=== PATIENT | male | born 1965 | race Caucasian/White ===

== ENCOUNTER 2020-03-05 17:38 | Observation (INO) | payer BC ==
[2020-03-05] MEDS ORDERED: SODIUM CHLORIDE 0.9% 1,000 ML IV STA ×4 (18:07→19:15)
[2020-03-05] MEDS ORDERED: HYDROmorphone 1 MG/ML 1 ML SYRINGE IVP STA ×2 (18:07→20:17)
[2020-03-05] MEDS ORDERED: ONDANSETRON 4 MG/2 ML VIAL IVP STA (18:13)
[2020-03-05 18:35] LABS: Basophils % (A) 1 %; Eosinophils # (A) 0.1 k/uL (0-0.7); Eosinophils % (A) 1 %; HCT 48.7 % (39.0-53.0); HGB 16.2 gm/dL (13.0-17.5); Lymphocytes # (A) 1.5 k/uL (1.0-4.8); Lymphocytes % (A) 19 %; MCH 28.8 pg (25.0-35.0); MCHC 33.4 g/dL (31.0-37.0); MCV 86.3 fL (80.0-100.0); Mean Platelet Volume 8.5; Monocytes # (A) 0.5 k/uL (0-1.0); Monocytes % (A) 6 %; Neutrophils # (A) 5.7 k/uL (1.3-7.7); Neutrophils % (A) 72 %; Platelet Count 166 k/uL (150-450); RBC 5.64 m/uL (4.30-5.90); RDW 13.5 % (11.5-15.5); WBC 7.9 k/uL (3.8-10.6)
--- NOTE | 2020-03-05 18:37 | XR ---
EXAMINATION TYPE: XR KUB DATE OF EXAM: 03/05/2020 COMPARISON: NONE HISTORY: Abdominal pain TECHNIQUE: 2 views FINDINGS: 2 views upright were obtained and show no sign of intestinal obstruction or pneumoperitoneu m. Fecal pattern is normal. There is no sign of a mass. There is lumbar levoscoliosis. Lung bases are clear. There are no pathologic calcifications over the kidneys. IMPRESSION: Nonacute abdomen.
[2020-03-05 18:47] LABS: ALT 174 U/L (4-49); AST 117 U/L (17-59); African American GFR (CKD) 86 (>60 ml/min/1.73 sqM); Albumin 4.4 g/dL (3.5-5.0); Alcohol <10 mg/dL; Alkaline Phosphatase 96 U/L (38-126); Amylase 67 U/L (30-110); Anion Gap 12 mmol/L; Blood Urea Nitrogen 17 mg/dL (9-20); Calcium 9.4 mg/dL (8.4-10.2); Carbon Dioxide 21 mmol/L (22-30); Chloride 104 mmol/L (98-107); Creatine Kinase 223 U/L (55-170); Glucose 136 mg/dL (74-99); Lipase 197 U/L (23-300); Non-African American GFR(CKD) 74 (>60 ml/min/1.73 sqM); Potassium 4.1 mmol/L (3.5-5.1); Sodium 137 mmol/L (137-145); Total Bilirubin 0.8 mg/dL (0.2-1.3)
--- NOTE | 2020-03-05 18:53 | ED ---
Abdominal Pain HPI - General Chief Complaint: Abdominal Pain Stated Complaint: abdominal pain Time Seen by Provider: 03/05/20 18:07 Source: patient, family, RN notes reviewed Mode of arrival: ambulatory Limitations: no limitations - History of Present Illness Initial Comments: This is a 55-year-old male with a history of pancreatitis secondary to hyperl ipidemia and multiple surgeries done many years ago at [facility] who states she's had intermittent abdominal pain recently with past 3-4 days sharp in nature intermittent but now today he's had pain was 10/10 severity with nausea. Is now 7/10. Nonspecific no trouble with constipation diarrhea or dysuria. No overt fevers chills or sweats. He states it feels similar to his prior attacks of pancreatitis. He does not drink alcohol does not smoke cigarettes. No other change in his diet or medications. He states his triglycerides had been within reasonable limits recently. No other complaints or modifying factors. He was seen by his provider today and sent in for a CAT scan the abdomen but he started developing increased pain while preparing for the CAT scan. MD Complaint: abdominal pain - Related Data Home Medications Medication Instructions Recorded Confirmed Ascorbic Acid [Vitamin C] 1,000 mg PO DAILY 03/05/20 03/05/20 Atorvastatin Calcium [Lipitor] 40 mg PO HS 03/05/20 03/05/20 Cholecalciferol [Vitamin D3 (25 2,000 unit PO DAILY 03/05/20 03/05/20 Mcg = 1000 Iu)] Fenofibric Acid (Choline) 135 mg PO DAILY 03/05/20 03/05/20 [Fenofibric Acid] Ubidecarenone [Co Q-10] 100 mg PO DAILY 03/05/20 03/05/20 Allergies Allergy/AdvReac Type Severity Reaction Status Date / Time No Known Allergies Allergy Verified 03/05/20 19:49 Review of Systems ROS Statement: Those systems with pertinent positive or pertinent negative responses have been documented in the HPI. ROS Other: All systems not noted in ROS Statement are negative. Past Medical History Past Medical History: Hyperlipidemia History of Any Multi-Drug Resistant Organisms: None Reported Additional Past Surgical History / Comment(s): Pancreas Past Psychological History: No Psychological Hx Reported Smoking Status: Never smoker Past Alcohol Use History: None Reported Past Drug Use History: None Reported General Exam - General Exam Comments Initial Comments: This is a well-developed well-nourished awake alert oriented 3 male Limitations: no limitations General appearance: alert, anxious, in distress Head exam: Present: atraumatic, normocephalic, normal inspection Eye exam: Present: normal appearance, PERRL, EOMI. Absent: scleral icterus, conjunctival injection, periorbital swelling ENT exam: Present: normal exam, mucous membranes moist Neck exam: Present: normal inspection. Absent: tenderness, meningismus, lymphadenopathy Respiratory exam: Present: normal lung sounds bilaterally. Absent: respiratory distress, wheezes, rales, rhonchi, stridor Cardiovascular Exam: Present: regular rate, normal rhythm, normal heart sounds. Absent: systolic murmur, diastolic murmur, rubs, gallop, clicks GI/Abdominal exam: Present: soft, normal bowel sounds, other (Well-healed surgical scars midline as well as roof top. No overt guarding or rebound on examination.). Absent: distended, tenderness, guarding, rebound, rigid Extremities exam: Present: normal inspection, full ROM, normal capillary refill. Absent: tenderness, pedal edema, joint swelling, calf tenderness Back exam: Present: normal inspection Neurological exam: Present: alert, oriented X3, CN II-XII intact Psychiatric exam: Present: normal affect, normal mood Skin exam: Present: warm, dry, intact, normal color. Absent: rash Course Vital Signs 03/05/20 17:41 Temperature 98.2 F Pulse Rate 73 Respiratory 26 H Rate Blood Pressure 165/90 O2 Sat by Pulse 100 Oximetry Medical Decision Making - Medical Decision Making I did discuss findings with patient family is initially feeling better. He has increased abdominal pain. We a long discussion regarding the possible findings and diagnoses. Patient will be admitted Dr. Frausto. - Lab Data Result diagrams: 03/05/20 18:18 03/05/20 18:18 Lab Results 03/05/20 03/05/20 03/05/20 Range/Units 18:18 18:18 18:18 WBC 7.9 (3.8-10.6) k/uL RBC 5.64 (4.30-5.90) m/uL Hgb 16.2 (13.0-17.5) gm/dL Hct 48.7 (39.0-53.0) % MCV 86.3 (80.0-100.0) fL MCH 28.8 (25.0-35.0) pg MCHC 33.4 (31.0-37.0) g/dL RDW 13.5 (11.5-15.5) % Plt Count 166 (150-450) k/uL Neutrophils % 72 % Lymphocytes % 19 % Monocytes % 6 % Eosinophils % 1 % Basophils % 1 % Neutrophils # 5.7 (1.3-7.7) k/uL Lymphocytes # 1.5 (1.0-4.8) k/uL Monocytes # 0.5 (0-1.0) k/uL Eosinophils # 0.1 (0-0.7) k/uL Basophils # 0.0 (0-0.2) k/uL Sodium 137 (137-145) mmol/L Potassium 4.1 (3.5-5.1) mmol/L Chloride 104 (98-107) mmol/L Carbon Dioxide 21 L (22-30) mmol/L Anion Gap 12 mmol/L BUN 17 (9-20) mg/dL Creatinine 1.11 (0.66-1.25) mg/dL Est GFR (CKD-EPI)AfAm 86 (>60 ml/min/1.73 sqM) Est GFR (CKD-EPI)NonAf 74 (>60 ml/min/1.73 sqM) Glucose 136 H (74-99) mg/dL Plasma Lactic Acid Catracho (0.7-2.0) mmol/L Calcium 9.4 (8.4-10.2) mg/dL Total Bilirubin 0.8 (0.2-1.3) mg/dL AST 117 H (17-59) U/L ALT 174 H (4-49) U/L Alkaline Phosphatase 96 (38-126) U/L Creatine Kinase 223 H (55-170) U/L Troponin I (0.000-0.034) ng/mL Total Protein 7.0 (6.3-8.2) g/dL Albumin 4.4 (3.5-5.0) g/dL Amylase 67 (30-110) U/L Lipase 197 (23-300) U/L Urine Color Light Yellow Urine Appearance Clear (Clear) Urine pH 7.0 (5.0-8.0) Ur Specific Lynn 1.027 (1.001-1.035) Urine Protein 1+ H (Negative) Urine Glucose (UA) Negative (Negative) Urine Ketones Negative (Negative) Urine Blood Negative (Negative) Urine Nitrite Negative (Negative) Urine Bilirubin Negative (Negative) Urine Urobilinogen <2.0 (<2.0) mg/dL Ur Leukocyte Esterase Negative (Negative) Urine RBC <1 (0-5) /hpf Urine WBC 1 (0-5) /hpf Serum Alcohol <10 mg/dL 03/05/20 03/05/20 Range/Units 18:18 18:18 WBC (3.8-10.6) k/uL RBC (4.30-5.90) m/uL Hgb (13.0-17.5) gm/dL Hct (39.0-53.0) % MCV (80.0-100.0) fL MCH (25.0-35.0) pg MCHC (31.0-37.0) g/dL RDW (11.5-15.5) % Plt Count (150-450) k/uL Neutrophils % % Lymphocytes % % Monocytes % % Eosinophils % % Basophils % % Neutrophils # (1.3-7.7) k/uL Lymphocytes # (1.0-4.8) k/uL Monocytes # (0-1.0) k/uL Eosinophils # (0-0.7) k/uL Basophils # (0-0.2) k/uL Sodium (137-145) mmol/L Potassium (3.5-5.1) mmol/L Chloride (98-107) mmol/L Carbon Dioxide (22-30) mmol/L Anion Gap mmol/L BUN (9-20) mg/dL Creatinine (0.66-1.25) mg/dL Est GFR (CKD-EPI)AfAm (>60 ml/min/1.73 sqM) Est GFR (CKD-EPI)NonAf (>60 ml/min/1.73 sqM) Glucose (74-99) mg/dL Plasma Lactic Acid Catracho 3.0 H* (0.7-2.0) mmol/L Calcium (8.4-10.2) mg/dL Total Bilirubin (0.2-1.3) mg/dL AST (17-59) U/L ALT (4-49) U/L Alkaline Phosphatase (38-126) U/L Creatine Kinase (55-170) U/L Troponin I <0.012 (0.000-0.034) ng/mL Total Protein (6.3-8.2) g/dL Albumin (3.5-5.0) g/dL Amylase (30-110) U/L Lipase (23-300) U/L Urine Color Urine Appearance (Clear) Urine pH (5.0-8.0) Ur Specific Lynn (1.001-1.035) Urine Protein (Negative) Urine Glucose (UA) (Negative) Urine Ketones (Negative) Urine Blood (Negative) Urine Nitrite (Negative) Urine Bilirubin (Negative) Urine Urobilinogen (<2.0) mg/dL Ur Leukocyte Esterase (Negative) Urine RBC (0-5) /hpf Urine WBC (0-5) /hpf Serum Alcohol mg/dL - Radiology Data Radiology results: report reviewed (I did review the imaging and report is evidence of a possible ileus with a single loop of small bowel.), image reviewed Disposition Clinical Impression: Abdominal pain, Ileus Disposition: ADMITTED IP TO THIS [facility] Condition: Fair Referrals: Robin Hoff MD [Primary Care Provider] - 1-2 days
--- NOTE | 2020-03-05 19:21 | CT ---
EXAMINATION TYPE: CT abdomen pelvis w con DATE OF EXAM: 03/05/2020 COMPARISON: HISTORY: Abdominal pain CT DLP: 846.5 mGycm Automated exposure control for dose reduction was used. CONTRAST: Performed with IV Contrast, patient injected with 100 mL of Isovue 300. Lung bases are clear. There is no pleural effusion. There is 1.7 cm cyst in the left lobe of the live r. Heart size is normal. There is no pericardial effusion. Gallbladder is intact. The bile ducts are not dilated. Spleen is intact. There is no evidence of panc reatic mass. Stomach has normal size. There is no adrenal mass. Kidneys show satisfactory contrast opacification. There is no hydronephrosi s. There is 2 cm cortical cyst upper pole right kidney. There is no retroperitoneal adenopathy. Bladd er distends smoothly. There is no inguinal hernia. Prostate measures 5.3 cm. There is no free fluid i n the pelvis. There is a first-degree L5-S1 spondylolisthesis. There is no lumbar compression fracture. There is mi ld lumbar levoscoliosis. There is L5 spondylolysis. The hip joints are intact. Bony pelvis is intact. There is no mesenteric edema. There is no ascites or free air. There is mildly enlarged loop of small bowel in the right abdomen that measures up to 3 cm. Appendix is not seen. There is no sign of thick ened appendix. IMPRESSION: Distended loop of distal small bowel could relate to localized ileus. Appendix not seen. No sign of t hickened appendix. The large bowel appears to be entirely on the middle and right side of the abdomen . This could relate to some degree of nonrotation of the gut.
[2020-03-05 19:34] LABS: Appearance,Urine Clear (Clear); Bilirubin,Urine Negative (Negative); Blood,Urine Negative (Negative); Color,Urine Light Yellow; Glucose,Urine (UA) Negative (Negative); Ketones,Urine Negative (Negative); Leukocyte Esterase,Urine Negative (Negative); Nitrite,Urine Negative (Negative); Protein,Urine 1+ (Negative); RBC,Urine <1 /hpf (0-5); Specific Gravity,Urine 1.027 (1.001-1.035); Urobilinogen,Urine <2.0 mg/dL (<2.0); WBC,Urine 1 /hpf (0-5)
[2020-03-05] MEDS ORDERED: HYDROmorphone 1 MG/ML 1 ML SYRINGE IVP PRN (20:38)
[2020-03-05] MEDS ORDERED: NALOXONE 0.4 MG/ML 1 ML VIAL IV PRN (20:38)
[2020-03-05] MEDS ORDERED: ONDANSETRON 4 MG/2 ML VIAL IVP PRN (20:38)
[2020-03-05] MEDS ORDERED: MELATONIN 5 MG TABLET PO PRN (22:14)
[2020-03-05] MEDS: PANTOPRAZOLE 40 MG/10 ML VIAL IV SCH (22:51)
[2020-03-06] MEDS: CHOLECALCIFEROL 1,000 UNIT TAB PO SCH (08:48)
[2020-03-06] MEDS: PANTOPRAZOLE 40 MG/10 ML VIAL IV SCH (08:49)
[2020-03-06] MEDS: ASCORBIC ACID 500 MG TAB PO SCH (08:49)
[2020-03-06] MEDS: FENOFIBRATE 160 MG TAB PO SCH (08:49)
[2020-03-06 09:07] LABS: Basophils % (A) 0 %; Eosinophils # (A) 0.1 k/uL (0-0.7); Eosinophils % (A) 1 %; HCT 41.7 % (39.0-53.0); HGB 13.4 gm/dL (13.0-17.5); Lymphocytes # (A) 1.1 k/uL (1.0-4.8); Lymphocytes % (A) 17 %; MCH 28.2 pg (25.0-35.0); MCHC 32.2 g/dL (31.0-37.0); MCV 87.8 fL (80.0-100.0); Mean Platelet Volume 8.7; Monocytes # (A) 0.6 k/uL (0-1.0); Monocytes % (A) 9 %; Neutrophils # (A) 4.7 k/uL (1.3-7.7); Neutrophils % (A) 71 %; Platelet Count 119 k/uL (150-450); RBC 4.75 m/uL (4.30-5.90); RDW 13.8 % (11.5-15.5); WBC 6.6 k/uL (3.8-10.6)
[2020-03-06 09:10] LABS: Cholesterol 113 mg/dL (<200); HDL Cholesterol 35 mg/dL (40-60); LDL Cholesterol,Calculated 56 mg/dL (0-99); Triglycerides 112 mg/dL (<150)
[2020-03-06 12:16] LABS: ALT 120 U/L (4-49); AST 53 U/L (17-59); African American GFR (CKD) >90 (>60 ml/min/1.73 sqM); Albumin 3.1 g/dL (3.5-5.0); Alkaline Phosphatase 63 U/L (38-126); Anion Gap 4 mmol/L; Blood Urea Nitrogen 13 mg/dL (9-20); Calcium 8.3 mg/dL (8.4-10.2); Carbon Dioxide 26 mmol/L (22-30); Chloride 108 mmol/L (98-107); Glucose 100 mg/dL (74-99); Lipase 175 U/L (23-300); Non-African American GFR(CKD) 80 (>60 ml/min/1.73 sqM); Potassium 3.7 mmol/L (3.5-5.1); Sodium 138 mmol/L (137-145); Total Bilirubin 0.9 mg/dL (0.2-1.3); Total Protein 5.5 g/dL (6.3-8.2)
[2020-03-06] MEDS ORDERED: ACETAMINOPHEN TAB 325 MG TAB PO PRN (12:17)
[2020-03-06] MEDS: ENOXAPARIN 40 MG/0.4 ML SYRINGE SQ SCH (12:26)
--- NOTE | 2020-03-06 16:14 | P.GSCN ---
History of Present Illness Consult date: 03/06/20 History of present illness: CHIEF COMPLAINT: Abdominal pain HISTORY OF PRESENT ILLNESS: The patient is a 55-year-old man admitted yesterday from the emergency room secondary to abdominal pain. He reports his pain started Sunday, now 5 days ago that started at the right upper quadrant with radiation to his right upper back and side. He his pain had slowly improved over 4 days and was able to tolerate apple and oatmeal for breakfast yesterday. He had lunch at a local restaurant chicken salad with argentine dressing and had recurrent right upper quadrant pain. He has intolerance to creamy foods. He reports generally eating healthy. His family at bedside reports he like pizza. He went to his PCP yesterday for requested CT of the abdomen and pelvis hence his presentation today. He reports 29 years ago having multiple abdominal surgeries and was hospitalized for 13 weeks for severe pancreatitis. 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 He is concerned about his digestion. He is tolerating clear liquid diet. PAST MEDICAL HISTORY: See list and reviewed PAST SURGICAL HISTORY: See list and reviewed MEDICATIONS: See list and reviewed ALLERGIES: See list and reviewed SOCIAL HISTORY: See list and reviewed FAMILY HISTORY: See list and reviewed REVIEW OF ORGAN SYSTEMS: CONSTITUTIONAL: No fevers or chills. . EYES: Denies any trouble with vision. Wears glasses. HEENT: No difficulties with hearing. No nosebleeds. No difficulty swallowing. RESPIRATORY: Denies pneumonia. Denies any troubles with breathing or dyspnea on exertion. CARDIOVASCULAR: Denies any chest pain, palpitations, or recent heart attacks. Has hyperlipidemia. GASTROINTESTINAL: History of pancreatitis over 29 years ago with multiple abdominal surgeries. GENITOURINARY: Denies any blood in urine or increased urinary frequency. NEUROLOGICAL: Denies any numbness or tingling along the distal extremities. No seizure disorders or headaches. MUSCULOSKELETAL: Denies any back pain, stiffness or joint arthritis. SKIN: No current skin cancer. No rash. PSYCHIATRIC: Denies current depression or suicidal thoughts. ENDOCRINE: Denies current thyroid disorders. Denies any blood sugar glucose intolerance. HEME/LYMPHATIC: Denies any lumps and bumps around the neck. No recent deep venous thrombosis. ALLERGY/IMMUNOLOGY: No immunoglobulin therapy. No immune deficiencies. BREAST: Denies current breast lumps, pain or nipple discharge. PHYSICAL EXAM: VITALS: Reviewed CONSTITUTIONAL: Well developed and in no acute distress. EYES: Conjuctivae without sclera icterus. Pupils are equally round and reactive to light. Extraocular movements grossly intact. HEAD, EARS, NOSE, THROAT: Moist buccal mucosa. Head is atraumatic, normocephalic. Hears conversational speech. No nasal drainage. NECK: Supple. No JV distention. No thyroidomegaly. RESPIRATORY: Non-labored respirations and equal bilateral excursions. No gross wheezes. CARDIOVASCULAR: Regular rate and rhythm. Extremities without moderate edema. Palpable 2+ radial pulses. ABDOMEN: Multiple abdominal incisions including Chevron, upper midline, right lateral abdominal wall feeding tube/drain site healed. MUSCULOSKELETAL: No clubbing cyanosis SKIN: Warm and well perfused with good skin turgor. NEUROLOGIC: Cranial nerves II through XII grossly intact. Sensation upper and extremities intact. No focal or lateralizing signs. PSYCH: Appropriate affect. Alert and oriented to person, place and time. Disp lays appropriate insight. CLINCAL LABS: Reviewed. WBC normal 7.9 on admission. Lactate was elevated 3.0. Repeat WBC 6.6. Hemoglobin 13.4. IMAGING: Independently reviewed CT of the abdomen pelvis where gallbladder is present. No focal colitis free air or bowel obstruction identified. This is my independent interpretation. RADIOLOGY: Report reviewed a CT of the abdomen and pelvis with findings of ileus. ASSESSMENT: 1. Ileus 2. Abdominal pain 3. Clinical cholecystitis 4. Catastrophic abdomen for necrotizing pancreatitis 5. Multiple abdominal surgeries for hostile abdomen PLAN: 1. Recommend US gallbladder for gallstones. 2. Agree with GI consultation for history of necrotizing pancreatitis in the past. Patient family requesting upper GI scope 3. Dietitian for low fat diet. 4. No surgical intervention for pre-existing history of hostile abdomen. Thank you for this kind consultation. Past Medical History Past Medical History: Hyperlipidemia Additional Past Medical History / Comment(s): Hx of pancreatitis. Prolonged hosptilization 29 years ago, 1990 over 13 weeks for necrotizing pancreatitis. Had feeding tube, open abdomen. History of Any Multi-Drug Resistant Organisms: None Reported Additional Past Surgical History / Comment(s): Chevron incision, upper abdominal incision, feeding/drainage tubes. Multiple laparotomies for necrotizing pancreatitis, hostile abdomen. Past Anesthesia/Blood Transfusion Reactions: No Reported Reaction Past Psychological History: No Psychological Hx Reported Smoking Status: Never smoker Past Alcohol Use History: None Reported Past Drug Use History: None Reported Medications and Allergies Home Medications Medication Instructions Recorded Confirmed Type Ascorbic Acid [Vitamin C] 1,000 mg PO DAILY 03/05/20 03/05/20 History Atorvastatin Calcium [Lipitor] 40 mg PO HS 03/05/20 03/05/20 History Cholecalciferol [Vitamin D3 (25 2,000 unit PO DAILY 03/05/20 03/05/20 History Mcg = 1000 Iu)] Fenofibric Acid (Choline) 135 mg PO DAILY 03/05/20 03/05/20 History [Fenofibric Acid] Ubidecarenone [Co Q-10] 100 mg PO DAILY 03/05/20 03/05/20 History Allergies Allergy/AdvReac Type Severity Reaction Status Date / Time No Known Allergies Allergy Verified 03/05/20 19:49 Surgical - Exam Vital Signs Temp Pulse Resp BP Pulse Ox 98.2 F 73 26 H 165/90 100 03/05/20 17:41 03/05/20 17:41 03/05/20 17:41 03/05/20 17:41 03/05/20 17:41 Results - Labs 03/06/20 08:48 03/06/20 08:48 Abnormal Lab Results - Last 24 Hours (Table) 03/05/20 03/05/20 03/05/20 Range/Units 18:18 18:18 18:18 Plt Count (150-450) k/uL Carbon Dioxide 21 L (22-30) mmol/L Glucose 136 H (74-99) mg/dL Plasma Lactic Acid Catracho 3.0 H* (0.7-2.0) mmol/L AST 117 H (17-59) U/L ALT 174 H (4-49) U/L Creatine Kinase 223 H (55-170) U/L HDL Cholesterol (40-60) mg/dL Urine Protein 1+ H (Negative) 03/06/20 03/06/20 Range/Units 08:48 08:48 Plt Count 119 L (150-450) k/uL Carbon Dioxide (22-30) mmol/L Glucose (74-99) mg/dL Plasma Lactic Acid Catracho (0.7-2.0) mmol/L AST (17-59) U/L ALT (4-49) U/L Creatine Kinase (55-170) U/L HDL Cholesterol 35 L (40-60) mg/dL Urine Protein (Negative) Diabetes panel 03/05/20 03/06/20 Range/Units 18:18 08:48 Sodium 137 (137-145) mmol/L Potassium 4.1 (3.5-5.1) mmol/L Chloride 104 (98-107) mmol/L Carbon Dioxide 21 L (22-30) mmol/L BUN 17 (9-20) mg/dL Creatinine 1.11 (0.66-1.25) mg/dL Glucose 136 H (74-99) mg/dL Calcium 9.4 (8.4-10.2) mg/dL AST 117 H (17-59) U/L ALT 174 H (4-49) U/L Alkaline Phosphatase 96 (38-126) U/L Total Protein 7.0 (6.3-8.2) g/dL Albumin 4.4 (3.5-5.0) g/dL Triglycerides 112 (<150) mg/dL HDL Cholesterol 35 L (40-60) mg/dL Calcium panel 03/05/20 Range/Units 18:18 Calcium 9.4 (8.4-10.2) mg/dL Albumin 4.4 (3.5-5.0) g/dL Pituitary panel 03/05/20 Range/Units 18:18 Sodium 137 (137-145) mmol/L Potassium 4.1 (3.5-5.1) mmol/L Chloride 104 (98-107) mmol/L Carbon Dioxide 21 L (22-30) mmol/L BUN 17 (9-20) mg/dL Creatinine 1.11 (0.66-1.25) mg/dL Glucose 136 H (74-99) mg/dL Calcium 9.4 (8.4-10.2) mg/dL Adrenal panel 03/05/20 Range/Units 18:18 Sodium 137 (137-145) mmol/L Potassium 4.1 (3.5-5.1) mmol/L Chloride 104 (98-107) mmol/L Carbon Dioxide 21 L (22-30) mmol/L BUN 17 (9-20) mg/dL Creatinine 1.11 (0.66-1.25) mg/dL Glucose 136 H (74-99) mg/dL Calcium 9.4 (8.4-10.2) mg/dL Total Bilirubin 0.8 (0.2-1.3) mg/dL AST 117 H (17-59) U/L ALT 174 H (4-49) U/L Alkaline Phosphatase 96 (38-126) U/L Total Protein 7.0 (6.3-8.2) g/dL Albumin 4.4 (3.5-5.0) g/dL Assessment and Plan (1) History of pancreatitis Current Visit: Yes Status: Acute Code(s): Z87.19 - PERSONAL HISTORY OF OTHER DISEASES OF THE DIGESTIVE SYSTEM SNOMED Code(s): 83496747931747 (2) S/P multiple system trauma surgery Current Visit: Yes Status: Acute Code(s): Z98.890 - OTHER SPECIFIED POSTPROCEDURAL STATES SNOMED Code(s): 495246156 (3) Cholecystitis Current Visit: Yes Status: Acute Code(s): K81.9 - CHOLECYSTITIS, UNSPECIFIED SNOMED Code(s): 57750344 (4) Hyperlipidemia Current Visit: Yes Status: Acute Code(s): E78.5 - HYPERLIPIDEMIA, UNSPECIFIED SNOMED Code(s): 21554427
--- NOTE | 2020-03-06 17:14 | US ---
EXAMINATION TYPE: US gallbladder DATE OF EXAM: 03/06/2020 COMPARISON: NONE CLINICAL HISTORY: Right upper quadrant pain. RUQ pain exam limitations due to large scar across abdom en. EXAM MEASUREMENTS: Liver Length: 16.4 cm Gallbladder Wall: .4 cm CBD: .8 cm Right Kidney: 10.5 x 5.6 x 5.1 cm Pancreas: Obscured by bowel gas Liver: wnl Gallbladder: Multiple gallstones seen thickened wall. Evidence for sonographic Lindquist's sign: No CBD: Dilated. Right Kidney: Anechoic are upper pole 1.7 x 1.3 x 1.8 cm. IMPRESSION: 1. Clinical correlation recommended for acute cholecystitis.
[2020-03-06] MEDS: PANTOPRAZOLE 40 MG TABLET PO SCH (17:19)
--- NOTE | 2020-03-06 20:08 | P.HPIM ---
History of Present Illness H&P Date: 03/06/20 Chief Complaint: Abdominal pain History of presenting complaint: This is a pleasant 55-year-old patient of Dr. meier from [place]. He should about 29 years ago at an attack of pancreatitis back in February 1991. Had a second attack of the same in June 1991. Patient states she was diagnosed with necrotizing pancreatitis. He underwent multiple surgeries by the surgeons out of [place] Dr. Garrett and Dr. Zelaya. Subsequently over the years patient has done well. With no further complications. Has not unremarkable history. 4 days ago patient started having abdominal pain. Apically for about an hour after eating food and it lasted for about an hour. Yesterday it got out to eat with his and after eating chicken salad he again doesn't know severe pain. Pain is localized to the upper abdomen area. Denied nausea vomiting. No fever no chills. No change in bowel pattern. Admitted for the same. Pancreatic enzymes are normal in the ER. I saw the patient this morning patient's pain is completely relieved. Patient is hungry. Getting IV fluids. Had been nothing by mouth. Review of systems: GEN.: Tired EYES: None HEENT: None NECK: None RESPIRATORY: None CARDIOVASCULAR: None GASTROINTESTINAL: As above GENITOURINARY: None MUSCULOSKELETAL: None LYMPHATICS: None HEMATOLOGICAL: None PSYCHIATRY: None NEUROLOGICAL: None Past medical history to include: Necrotizing pancreatitis with multiple surgeries back in 1991.-He was about 13 weeks in the hospital with a feeding tube. Open abdomen. Social history: Lives with his . Works at [employer]. No smoking or alcohol. Family history: Reviewed, noncontributory to presentation Physical examination: VITAL SIGNS: 98.2, 73, 18, 1 58 x 68, 100% on room air GENERAL: BMI 24.4, sitting up, comfortable. EYES: Pupils equal. Conjunctiva normal. HEENT: External appearance of nose and ears normal, oral cavity grossly normal. NECK: JVD not raised; masses not palpable. HEART: First and second heart sounds are normal; no edema. LUNGS: Respiratory rate normal; clear to auscultation. ABDOMEN: Soft, nontender, liver spleen not palpable, no masses palpable. PSYCH: Alert and oriented x3; mood and affect normal. NEUROLOGICAL: Cranial nerves grossly intact; no facial asymmetry, power and sensation grossly intact. LYMPHATICS: No lymph nodes palpable in the axilla and neck INVESTIGATIONS, reviewed in the clinical context: White count 7.9 hemoglobin 16.2 platelets 166 potassium 4.1 creatinine 1.11 Lactic acid 3.0 AST 117 ALT 174 Troponin I less than 0.012 LDL 56 amylase 67 lipase 197 UA positive for protein 1+ Computed tomography scan of the abdomen pelvis-distended loop of distal small bowel. Question about nonrotation of the gut Assessment: -This is a patient with severe necrotizing pancreatitis several years ago with multiple surgeries. Patient now presents with abdominal pain 1 hour after of eating lasting for about an hour. Going on for about 3-4 days. Note patient's bank getting enzymes normal. Patient neither radiologically has any evidence of chronic pancreatitis no prior history. Denies any chronic diarrhea. Has no diabetes. Making chronic peritonitis less likely. Would've expected it to some lies and pancreatic enzymes with this acute presentation. Possibility of gallstones noted given at elevation in slight LFTs. Bowel ischemia in the diff erential. No nothing on the computed tomography scan with IV contrast. -Lactic acidosis -Incidental proteinuria. Plan: Had a very lengthy talk with the patient. We'll try the patient on clear liqui ds and advanced to full liquids see how he does for the same. Consultation made to general surgery and also consult GI. IV fluids. DVT prophylaxis. Repeat labs in the morning. Repeat LFTs in the evening. We will make the patient nothing by mouth after midnight till further evaluated. Abdominal ultrasound ordered Past Medical History Past Medical History: Hyperlipidemia Additional Past Medical History / Comment(s): Hx of pancreatitis History of Any Multi-Drug Resistant Organisms: None Reported Additional Past Surgical History / Comment(s): Pancreas Past Anesthesia/Blood Transfusion Reactions: No Reported Reaction Past Psychological History: No Psychological Hx Reported Smoking Status: Never smoker Past Alcohol Use History: None Reported Past Drug Use History: None Reported Medications and Allergies Home Medications Medication Instructions Recorded Confirmed Type Ascorbic Acid [Vitamin C] 1,000 mg PO DAILY 03/05/20 03/05/20 History Atorvastatin Calcium [Lipitor] 40 mg PO HS 03/05/20 03/05/20 History Cholecalciferol [Vitamin D3 (25 2,000 unit PO DAILY 03/05/20 03/05/20 History Mcg = 1000 Iu)] Fenofibric Acid (Choline) 135 mg PO DAILY 10/30/20 10/30/20 History [Fenofibric Acid] Ubidecarenone [Co Q-10] 100 mg PO DAILY 03/05/20 03/05/20 History Allergies Allergy/AdvReac Type Severity Reaction Status Date / Time No Known Allergies Allergy Verified 03/05/20 19:49 Physical Exam Vitals: Vital Signs Temp Pulse Pulse Resp BP BP Pulse Ox 03/06/20 09:00 98.3 F 62 17 142/85 98 03/06/20 02:33 98.1 F 70 16 116/70 99 03/06/20 02:22 66 16 03/05/20 23:00 66 16 161/99 97 03/05/20 22:10 66 16 03/05/20 22:00 98.0 F 72 15 185/105 97 03/05/20 21:49 98.6 F 78 18 158/68 98 03/05/20 17:41 98.2 F 73 26 H 165/90 100 Intake and Output 03/05/20 03/06/20 03/06/20 22:59 06:59 14:59 Other: # Voids 2 1 Weight 77.111 kg Results CBC & Chem 7: 03/06/20 08:48 03/06/20 08:48 Labs: Abnormal Lab Results - Last 24 Hours (Table) 03/05/20 03/05/20 03/05/20 Range/Units 18:18 18:18 18:18 Plt Count (150-450) k/uL Carbon Dioxide 21 L (22-30) mmol/L Glucose 136 H (74-99) mg/dL Plasma Lactic Acid Catracho 3.0 H* (0.7-2.0) mmol/L AST 117 H (17-59) U/L ALT 174 H (4-49) U/L Creatine Kinase 223 H (55-170) U/L HDL Cholesterol (40-60) mg/dL Urine Protein 1+ H (Negative) 03/06/20 03/06/20 Range/Units 08:48 08:48 Plt Count 119 L (150-450) k/uL Carbon Dioxide (22-30) mmol/L Glucose (74-99) mg/dL Plasma Lactic Acid Catr[place] (0.7-2.0) mmol/L AST (17-59) U/L ALT (4-49) U/L Creatine Kinase (55-170) U/L HDL Cholesterol 35 L (40-60) mg/dL Urine Protein (Negative) Thrombosis Risk Factor Assmnt - Choose All That Apply Any of the Below Risk Factors Present?: Yes Each Factor Represents 1 point: Age 41-60 years Other Risk Factors: No Thrombosis Risk Factor Assessment Total Risk Factor Score: 1 Thrombosis Risk Factor Assessment Level: Low Risk
[2020-03-06] MEDS ORDERED: ATORVASTATIN 40 MG TAB PO SCH (21:00)
--- NOTE | 2020-03-06 21:22 | NM ---
EXAMINATION TYPE: NM hepatobiliary wo EF DATE OF EXAM: 03/06/2020 COMPARISON: NONE INDICATION: Biliary dyskinesia TECHNIQUE: After the intravenous administration of 4.6 mCi Tc 99m Mebrofenin hepatobiliary scintigrap hy is performed. Images were obtained immediately post injection. FINDINGS: There is prompt uptake and excretion of radiotracer by the liver. Extrahepatic ducts are identified at 20 minutes. Small bowel activity is noted within 32 minutes. Delayed imaging was performed at 90 minutes to the 2 hours no definite identification of the gallblad nikkie is evident. Cystic duct appears to be obstructed. IMPRESSION: 1. Nonvisualization of the gallbladder within 1 hour. Delayed imaging does not clearly identify the gallbladder. Cystic duct obstruction and acute cholecystitis should be considered.
[2020-03-06] MEDS ORDERED: KETOROLAC 15 MG/ML 1 ML VIAL IVP STA (22:18)
[2020-03-06] MEDS ORDERED: MELATONIN 5 MG TABLET PO PRN (22:45)
[2020-03-07] MEDS: PANTOPRAZOLE 40 MG TABLET PO SCH ×2 (07:55→17:06)
[2020-03-07 08:54] LABS: ALT 86 U/L (4-49); AST 36 U/L (17-59); African American GFR (CKD) >90 (>60 ml/min/1.73 sqM); Albumin 3.6 g/dL (3.5-5.0); Alkaline Phosphatase 57 U/L (38-126); Anion Gap 5 mmol/L; Blood Urea Nitrogen 9 mg/dL (9-20); Calcium 8.8 mg/dL (8.4-10.2); Carbon Dioxide 26 mmol/L (22-30); Chloride 106 mmol/L (98-107); Glucose 103 mg/dL (74-99); Non-African American GFR(CKD) >90 (>60 ml/min/1.73 sqM); Sodium 137 mmol/L (137-145); Total Bilirubin 1.1 mg/dL (0.2-1.3)
[2020-03-07 09:22] LABS: Potassium 3.9 mmol/L (3.5-5.1)
[2020-03-07] MEDS: PIPERACILLIN-TAZOBACTAM 3.375 GM in SODIUM CHLORIDE 0.9% 100 ML IVPB SCH ×2 (09:50→17:01)
[2020-03-07] MEDS: CHOLECALCIFEROL 1,000 UNIT TAB PO SCH (09:53)
[2020-03-07] MEDS: ASCORBIC ACID 500 MG TAB PO SCH (09:54)
[2020-03-07] MEDS: FENOFIBRATE 160 MG TAB PO SCH (09:54)
[2020-03-07] MEDS: ENOXAPARIN 40 MG/0.4 ML SYRINGE SQ SCH (09:54)
--- NOTE | 2020-03-07 10:13 | CONS ---
CONSULTATION DATE OF SERVICE: 03/07/2020 REQUESTING PHYSICIAN: Dr. Hoff. REASON FOR CONSULTATION: Abdominal pain, elevated LFTs. HISTORY OF PRESENT ILLNESS: The patient is a 55-year-old pleasant white male admitted to hospital with acute onset of intermittent episodes of severe epigastric and right upper quadrant abdominal pain for the last 5 days duration. The pain was mostly in the epigastric and right upper quadrant area radiating to the back, lasting between 1-5 hours. He had at least 4 episodes. On Sunday, the pain became very intense and hence he came to the emergency room yesterday and subsequently was admitted to the hospital for further evaluation. He did have a CT of the abdomen, as well as ultrasound of the gallbladder that showed evidence of multiple gallstones and slightly dilated common bile duct. Last night he also had a HIDA scan that showed nonvisualization of the gallbladder consistent with acute cholecystitis. The patient was already seen by Dr. Magaña. At the time of admission to the hospital he was noted to have mild elevation of serum transaminases with ALT and AST in the range of 117 and 174 respectively. Today AST is normalized to 53 and ALT is down to 120. T bilirubin and alkaline phosphatase have been within normal limits. The patient has history of hypertriglyceridemia and had an episode of severe acute necrotizing pancreatitis 29 years ago requiring a prolonged hospitalization with multiple pancreatic surgeries for debridement for necrotizing pancreatitis. PAST MEDICAL HISTORY: Significant for hypertriglyceridemia. PAST SURGICAL HISTORY: Multiple debridement surgeries of the pancreas 29 years ago. MEDICATIONS: Medications at home include fenofibric acid, Lipitor, vitamin C, vitamin D3. SOCIAL HISTORY: No smoking. No alcohol use. FAMILY HISTORY: Unremarkable. ALLERGIES: None. REVIEW OF SYSTEMS: CARDIOPULMONARY: No chest pain or shortness of breath. : No dysuria or hematuria. MUSCULOSKELETAL: Unremarkable. SKIN: Unremarkable. ENDOCRINE: Unremarkable. PSYCHIATRIC: Unremarkable. NEUROLOGY: Unremarkable. ENT: Vision unremarkable. ENDOCRINE: As mentioned above. GI: As mentioned above. CONSTITUTIONAL: No recent weight loss. No fever, chills, night sweats. PHYSICAL EXAMINATION: He appears comfortable. No apparent distress. VITAL SIGNS: Stable. Blood pressure is 119/76, pulse rate 64, temperature 98. HEENT: Examination unremarkable. Conjunctivae are pink. Sclerae anicteric. Oral cavity no lesions. NECK: No JVD or lymph node enlargement. CHEST: Clear to auscultation. HEART: Regular rate and rhythm. ABDOMEN: Soft, nontender, nondistended. Multiple scars noted on the abdomen from previous pancreatic surgery. EXTREMITIES: No pedal edema. SKIN: No rashes. NEUROLOGIC: Alert and oriented x3. No focal deficits. LABS: Labs done at the time of admission to the hospital: WBC 7.9, hemoglobin 16.2, platelets normal. Basic metabolic panel is within normal limits. AST and ALT at 117 am and 175 yesterday and today 53 and 120. T bilirubin and alkaline phosphatase are normal. IMPRESSION: 1. This is a patient who presented to the hospital with intermittent episodes of severe epigastric right upper quadrant abdominal pain for the last 5 days duration. He had 4 episodes so far. The last episode was intense radiating to the back and he came to the emergency room and was noted to have mild elevation of serum transaminases and ultrasound of the gallbladder did show evidence of multiple gallstones. HIDA scan showed nonvisualization of the gallbladder, all of which were consistent with acute calculous cholecystitis. His serum transaminases were slightly elevated, but they have almost normalized today. Bilirubin and alkaline phosphatase are normal. The patient is on broad-spectrum antibiotics. He was already evaluated by Dr. Magaña. Since the serum transaminases have improved, it is unlikely that he has any choledocholithiasis. 2. History of severe pancreatitis 29 years ago secondary to hypertriglyceridemia, status post multiple abdominal surgeries and pancreatic debridement at that time. RECOMMENDATIONS: 1. Since the serum transaminases have improved, no indication for an ERCP at the present time. 2. Continue with broad-spectrum antibiotics. 3. Further recommendations regarding gallbladder surgery by Dr. Magaña. 4. Repeat labs in the morning. Thank you for this consultation. MMODL / IJN: [id number] /
[2020-03-07 12:59] VITALS: BMI 24.3
--- NOTE | 2020-03-07 13:58 | P.PN ---
Subjective Progress Note Date: 03/07/20 CHIEF COMPLAINT: Abdominal pain HISTORY OF PRESENT ILLNESS: The patient is a 55-year-old man with, get a history of previous pancreatitis with pancreatic necrosectomy and open abdomen almost 30 years ago presents with right upper quadrant abdominal pain. He reports no abdominal pain since admission. His is at bedside. She remembers that his surgery 29 years ago was done at [place] by Shreyas. He is eager to eat. He has met with the dietitian for low fat diet. REVIEW OF ORGAN SYSTEMS: No fevers or chills. No chest pain. No productive sputum. PHYSICAL EXAM: VITALS: Reviewed CONSTITUTIONAL: Well developed and in no acute distress, comfortable and sitting in chair. EYES: Conjuctivae without sclera icterus. Pupils are equally round and reactive to light. Extraocular movements grossly intact. HEAD, EARS, NOSE, THROAT: Moist buccal mucosa. Head is atraumatic, normocephalic. Hears conversational speech. No nasal drainage. RESPIRATORY: Non-labored respirations and equal bilateral excursions. No gross wheezes. CARDIOVASCULAR: Regular rate and rhythm. Palpable 2+ radial pulses. ABDOMEN: Multiple abdominal incisions including [place], upper midline. Heavily scared. Nontender. No peritonitis. MUSCULOSKELETAL: No clubbing cyanosis SKIN: Warm and well perfused with good skin turgor. NEUROLOGIC: Cranial nerves II through XII grossly intact. No focal or lateralizing signs. PSYCH: Appropriate affect. Alert and oriented to person, place and time. Displays appropriate insight. CLINCAL LABS: Reviewed. WBC normal 7.9 on admission down 6.6. Hemoglobin 13.4. Platelets 119. LFTs improving. Total bilirubin increasing. IMAGING: Independently reviewed ultrasound of the gallbladder with multiple gallstones identified. HIDA scan independently reviewed demonstrating nonvisualization of the gallbladder. RADIOLOGY: Report reviewed ultrasound demonstrated dilated common bile duct 8 mm. ASSESSMENT: 1. Symptomatic gallstones with cholecystitis 2. History of hostile abdomen with multiple abdominal surgeries PLAN: 1. He is extremely high risk for surgical intervention and would best benefit with referral to tertiary care center for open cholecystectomy. 2. He is clinically stable. Alternatives for treatment includes Actigall and antibiotics in the interim while pending referral to tertiary care center. His confirms that his original surgeons are still active and practicing at [facility] in [place]. 3. May start low fat diet. 4. Gallstone dissolution at least 3 months to 1 year described. 5. Low fat/no fat dietary options reviewed. 6. Patient started on antibiotics. Objective - Vital Signs Vital signs: Vital Signs Temp 98.1 F 03/07/20 09:00 Pulse 58 L 03/07/20 09:00 Resp 18 03/07/20 09:00 BP 149/68 03/07/20 09:00 Pulse Ox 97 03/07/20 09:00 Intake & Output 03/06/20 03/07/20 03/07/20 19:59 06:59 18:59 Intake Total Balance Intake: Oral Other: # Voids - Labs CBC & Chem 7: 03/06/20 08:48 03/07/20 07:50 Labs: Abnormal Lab Results - Last 24 Hours (Table) 03/07/20 Range/Units 07:50 Glucose 103 H (74-99) mg/dL ALT 86 H (4-49) U/L Total Protein 6.0 L (6.3-8.2) g/dL Assessment and Plan (1) History of pancreatitis Current Visit: Yes Status: Acute Code(s): Z87.19 - PERSONAL HISTORY OF OTHER DISEASES OF THE DIGESTIVE SYSTEM SNOMED Code(s): 20179432578277 (2) S/P multiple system trauma surgery Current Visit: Yes Status: Acute Code(s): Z98.890 - OTHER SPECIFIED PO STPROCEDURAL STATES SNOMED Code(s): 703054245 (3) Cholecystitis Current Visit: Yes Status: Acute Code(s): K81.9 - CHOLECYSTITIS, UNSPECIFIED SNOMED Code(s): 06145437 (4) Hyperlipidemia Current Visit: Yes Status: Acute Code(s): E78.5 - HYPERLIPIDEMIA, U NSPECIFIED SNOMED Code(s): 60254193 (5) Gallstones Current Visit: Yes Status: Acute Code(s): K80.20 - CALCULUS OF GALLBLADDER W/O CHOLECYSTITIS W/O OBSTRUCTION SNOMED Code(s): 863315580
[2020-03-07 16:28] VITALS: BP 160/91; PULSE 71; RESP 16; TEMP 97.3
[2020-03-07] MEDS: ursodioL 300 MG CAP PO SCH ×2 (17:01→17:32)
--- NOTE | 2020-03-07 20:00 | P.DS ---
Providers Date of admission: 03/05/20 20:40 Expected date of discharge: 03/07/20 Attending physician: Evan Frausto Consults: 03/05/20 21:14 Consult Physician Routine Consulting Provider: Dominga Magaña Consult Reason/Comments: Abdominal pain Do you want consulting provider notified?: Yes, Notify in am 03/06/20 12:06 Consult Physician Routine Consulting Provider: Liliana Ferrer Consult Reason/Comments: abd pain Do you want consulting provider notified?: Yes Primary care physician: Robin Hoff MD Hospital Course: Chief Complaint: Abdominal pain History of presenting complaint: This is a pleasant 55-year-old patient of Dr. hoff from [place]. He should about 29 years ago at an attack of pancreatitis back in February 1991. Had a second attack of the same in June 1991. Patient states she was diagnosed with necrotizing pancreatitis. He underwent multiple surgeries by the surgeons out of [place] Dr. Garrett and Dr. Zelaya. Subsequently over the years patient has done well. With no further complications. Has not unremarkable history. 4 days ago patient started having abdominal pain. Apically for about an hour after eating food and it lasted for about an hour. Yesterday it got out to eat with his and after eating chicken salad he again doesn't know severe pain. Pain is localized to the upper abdomen area. Denied nausea vomiting. No fever no chills. No change in bowel pattern. Admitted for the same. Pancreatic enzymes are normal in the ER. I saw the patient this morning patient's pain is completely relieved. Patient is hungry. Getting IV fluids. Had been nothing by mouth. Today-patient's gallbladder ultrasound did confirm multiple gallstones and thickening of the gallbladder wall. HIDA scan showed low ejection fraction. Patient is felt to have symptomatic gallstones and acute cholecystitis. This morning patient's had no further pain. No fever no chills. Discussed at length with the patient. Later patient was seen by Dr. Hines from general surgery. Because patient is high risk for surgery she starting the patient on Actigall and was the patient to follow-up with the surgeons for surgery if still indicated. Patient be put on a low-fat diet. Patient will follow-up with his surgeons at [facility] including Dr. Zelaya and Dr. Yan. Discussion and discharge planning more than 35 minutes Consultation: Dr. Arlene Ferrer from GI Dr. Hines from general surgery Physical examination: VITAL SIGNS: 98.1, 71, 16, 149/60, 97% room air GENERAL: BMI 24.4, sitting up, comfortable. EYES: Pupils equal. Conjunctiva normal. NECK: JVD not raised; masses not palpable. HEART: First and second heart sounds are normal; no edema. LUNGS: Respiratory rate normal; clear to auscultation. ABDOMEN: Soft, nontender, liver spleen not palpable, no masses palpable. PSYCH: Alert and oriented x3; mood and affect normal. INVESTIGATIONS, reviewed in the clinical context: HIDA scan-nonvisualization of the gallbladder within 1 hour. Ultrasound gallbladder-multiple gallstones with thickened wall. CBD dilated.- 0.8 cm White count 6.6 hemoglobin 13.4 potassium 3.9 creatinine 0.88 Admission testing White count 7.9 hemoglobin 16.2 platelets 166 potassium 4.1 creatinine 1.11 Lactic acid 3.0 AST 117 ALT 174 Troponin I less than 0.012 LDL 56 amylase 67 lipase 197 UA positive for protein 1+ Computed tomography scan of the abdomen pelvis-distended loop of distal small bowel. Question about nonrotation of the gut Assessment: -Acute cholecystitis secondary to gallstones -Choledocholithiasis -Lactic acidosis -Incidental proteinuria. Disposition: Home Patient Condition at Discharge: Stable Plan - Discharge Summary New Discharge Prescriptions: New ursodioL [Actigall] 300 mg PO BID #60 capsule Amoxic-Pot Clav 875-125Mg [Augmentin 875-125] 1 tab PO BID #14 tab Continue Ubidecarenone [Co Q-10] 100 mg PO DAILY Fenofibric Acid (Choline) [Fenofibric Acid] 135 mg PO DAILY Cholecalciferol [Vitamin D3 (25 Mcg = 1000 Iu)] 2,000 unit PO DAILY Ascorbic Acid [Vitamin C] 1,000 mg PO DAILY Atorvastatin Calcium [Lipitor] 40 mg PO HS Discharge Medication List Ascorbic Acid [Vitamin C] 1,000 mg PO DAILY 03/05/20 [History] Atorvastatin Calcium [Lipitor] 40 mg PO HS 03/05/20 [History] Cholecalciferol [Vitamin D3 (25 Mcg = 1000 Iu)] 2,000 unit PO DAILY 03/05/20 [History] Fenofibric Acid (Choline) [Fenofibric Acid] 135 mg PO DAILY 03/05/20 [History] Ubidecarenone [Co Q-10] 100 mg PO DAILY 03/05/20 [History] Amoxic-Pot Clav 875-125Mg [Augmentin 875-125] 1 tab PO BID #14 tab 03/07/20 [Rx] ursodioL [Actigall] 300 mg PO BID #60 capsule 03/07/20 [Rx] Follow up Appointment(s)/Referral(s): Dominga Magaña MD [STAFF PHYSICIAN] - As Needed Robin Hoff MD [Primary Care Provider] - 1-2 days Patient Instructions/Handouts: Cholecystitis (ED), Gallstones (DC), Low Fat Diet (DC) Activity/Diet/Wound Care/Special Instructions: Absolutely low fat or NO FAT diet. Please see your PCP for referral to see Irving alphonso Fiore for surgical intervention. CBC, CMP-3 days Discharge Disposition: HOME SELF-CARE
== END 2020-03-07 18:40 | disposition home or self-care (01) ==
LOC: EC 17:38 → 1SOBS 20:40
PROVIDERS: ADMIT Hospitalist; ATTEND Hospitalist
DX: K80.00 Calculus of gallbladder with acute cholecystitis without obstruction (principal); K80.42 Calculus of bile duct with acute cholecystitis without obstruction; E78.5 Hyperlipidemia, unspecified; Z87.19 Personal history of other diseases of the digestive system; Z79.899 Other long term (current) drug therapy; E87.2 Acidosis; R80.9 Proteinuria, unspecified; E78.1 Pure hyperglyceridemia; Z98.890 Other specified postprocedural states
CPT/HCPCS: 96365; 96366; 96372 ×2; 96375 ×3; 96376 ×2; 96361; 99285; 36415; 80061; 80053 ×3; 82150; 82550; 83605; 83690 ×2; 84484; 85025 ×2; 81001; 80320; 74018; 76705; 74177; 78226; G0378 ×3; A9537; J2543; J2405; J1650 ×2; J1170 ×2; J1885; C9113 ×2; Q9967

== ENCOUNTER → 2020-03-05 | Outpatient (CLI) | payer BC | END | disposition home or self-care (01) | LOC: RADCTMAIN 17:16 | PROVIDERS: ATTEND Physician Assistant | DX: Z53.9 Procedure and treatment not carried out, unspecified reason (principal) ==

== ENCOUNTER → 2022-10-23 | Outpatient (CLI) | payer BC | END | disposition home or self-care (01) | LOC: RADUSWWP 10:01 | PROVIDERS: ATTEND Family Medicine | DX: Z53.9 Procedure and treatment not carried out, unspecified reason (principal) ==

== ENCOUNTER 2023-09-21 11:35 | Day surgery (SDC) | payer BC ==
[2023-09-21] MEDS: LACTATED RINGERS 1,000 ML IV SCH (12:42)
[2023-09-21 13:23] VITALS: TEMP 97
[2023-09-21] MEDS ORDERED: PROPOFOL 10 MG/ML 20 ML VIAL IV ONE (13:31)
--- NOTE | 2023-09-21 13:47 | P.PCN ---
Date of Procedure: 09/21/23 Procedure(s) Performed: BRIEF HISTORY: Patient is a 58-year-old pleasant white man scheduled for an elective colonoscopy as a part of screening for colon cancer. Patient states that he had extensive colon resection in 1991. PROCEDURE PERFORMED: Colonoscopy. PREOPERATIVE DIAGNOSIS: Screening for colon cancer. IV sedation per Anesthesia. PROCEDURE: After informed consent was obtained, the patient, was brought into the endoscopy unit. IV sedation was administered by Anesthesia under continuous monitoring. Digital rectal examination was normal. Initially the Olympus CF-160 flexible video colonoscope was then inserted in the rectum, gradually advanced into the descending colon. The anastomosis was located at 50 cm from the anal verge. Prep was poor. Thought irrigation was performed. Mucosa of the descending colon, sigmoid colon, and rectum appeared normal. Retroflexion was performed in the rectum and no lesions were seen. The patient tolerated the procedure well. IMPRESSION: Normal-appearing colon from rectum to descending colon with normal- appearing anastomosis. RECOMMENDATIONS: Findings of this examination were discussed with the patient as well as his family.. He was advised to have repeat screening screening colonoscopy in 10 years.
[2023-09-21 14:22] VITALS: BP 111/70; PULSE 66; RESP 18
== END 2023-09-21 14:31 | disposition home or self-care (01) ==
LOC: ORWHC2ENDO 11:35
PROVIDERS: ATTEND Internal Medicine Gastroenterology
DX: Z12.11 Encounter for screening for malignant neoplasm of colon (principal); I10 Essential (primary) hypertension; E78.5 Hyperlipidemia, unspecified; Z98.890 Other specified postprocedural states; Z79.899 Other long term (current) drug therapy
CPT/HCPCS: 45378; J2704

== ENCOUNTER → 2024-10-28 | Outpatient (CLI) | payer BC ==
--- NOTE | 2024-10-28 09:53 | MR ---
EXAMINATION TYPE: MR Prostate wo/w con DATE OF EXAM: 10/28/2024 8:07 AM COMPARISON: None. CLINICAL INDICATION: Male, 59 years old with history of R97.20 ELEVATED PROSTATE SPECIFIC ANTIGEN [PS A]; TECHNIQUE: Multi-planar, multi-sequence imaging of the pelvis is performed prior to and following the uncomplicated administration of bolus intravenous gadolinium. IV Contrast: 8 cc Gadobutrol. Interpretive Criteria: PI-RADS v2.1 SERUM PSA: PSA 3.92 02/19/2024 PSA 5.62 09/26/2024 SURGICAL PATHOLOGY: No data available. FINDINGS: Prostatic dimensions: 6.2 x 5.9 x 4.2 cm. Ellipsoid Volume:80.44 (PSA density=0.07 ng/mL/mL) CENTRAL GLAND (Central and Transition Zones/CZ+TZ): Multiple bilateral, heterogenous appearing hypertrophic stromal nodules, without suspicious lesion. M edian lobe hypertrophy with protrusion into the base of the bladder. (PI-RADS 2) PERIPHERAL ZONE (PZ): Limited evaluation of the posterior prostate due to gas in the rectum. Bilateral linear, indistinct wedgelike areas of low ADC, and low T2 signal, No evidence of masslike a bnormality, or localized perfusional hypervascularity, to further suggest a focus of clinically signi ficant prostate cancer. (PI-RADS 2) SEMINAL VESICLES (SV): Symmetric and unremarkable. PERIPROSTATIC TISSUES: Unremarkable. LYMPH NODES: No enlarged pelvic lymph node. REMAINING PELVIS: Bladder wall is within normal limits given distention. No abnormal free or organized intrapelvic fluid collection. No pathologic bowel dilation or mural thickening. No hernia visualized OSSEOUS STRUCTURES: No suspicious osseous abnormality. IMPRESSION: 1. No specific features for high-risk prostate cancer. Maximum PI-RADS score: 2. 2. Moderate BPH, estimated gland volume 80.44 (PSA density=0.07 ng/mL/mL) 3. No suspicious osseous lesion. No lymphadenopathy. No evidence of prostate adenocarcinoma involving the periprostatic tissues. [facility], , 10/28/2024 9:51 AM
== END | disposition home or self-care (01) ==
LOC: RADMRIMAIN 07:21
PROVIDERS: ATTEND Urology
DX: N40.0 Benign prostatic hyperplasia without lower urinary tract symptoms (principal); R97.20 Elevated prostate specific antigen [PSA]
CPT/HCPCS: 72197; A9585

== ENCOUNTER → 2024-11-20 | Outpatient (CLI) | payer BC ==
[2024-11-20 15:13] LABS: Anion Gap 12.00 mmol/L (4.00-12.00); BUN/Creat Ratio 18.56 Ratio (12.00-20.00); Blood Urea Nitrogen 16.7 mg/dL (9.0-27.0); Calcium 9.4 mg/dL (8.7-10.3); Carbon Dioxide 25.0 mmol/L (21.6-31.8); Chloride 106 mmol/L (96-109); Glucose 92 mg/dL (70-110); Potassium 4.6 mmol/L (3.5-5.5); Sodium 143 mmol/L (135-145)
[2024-11-20 15:14] LABS: Basophils # (A) 0.03 X 10*3/uL (0.00-0.10); Basophils % (A) 0.5 %; Eosinophils # (A) 0.13 X 10*3/uL (0.04-0.35); Eosinophils % (A) 2.4 %; HCT 46.5 % (39.6-50.0); HGB 14.8 g/dL (13.0-17.0); Immature Grans, Automated 0.40 %; Lymphocytes # (A) 1.19 X 10*3/uL (0.90-5.00); Lymphocytes % (A) 21.8 %; MCH 25.5 pg (27.0-32.0); MCHC 31.8 g/dL (32.0-37.0); MCV 80.2 FL (80.0-97.0); Monocytes # (A) 0.55 X 10*3/uL (0.20-1.00); Monocytes % (A) 10.1 %; NRBC Per 100 WBC 0 X 10*3/uL (0.00-0.01); Neutrophils # (A) 3.54 X 10*3/uL (1.80-7.70); Neutrophils % (A) 64.8 %; Platelet Count 123 X 10*3/uL (140-440); RBC 5.80 X 10*6/uL (4.40-5.60); RDW 14.6 % (11.5-14.5); WBC 5.46 X 10*3/uL (4.50-10.00)
== END | disposition home or self-care (01) ==
LOC: LABPAT 09:27
PROVIDERS: ATTEND Urology
DX: Z01.812 Encounter for preprocedural laboratory examination (principal); R97.20 Elevated prostate specific antigen [PSA]
CPT/HCPCS: 80048; 85025

== ENCOUNTER 2024-11-27 10:56 | Day surgery (SDC) | payer BC ==
--- NOTE | 2024-11-24 17:45 | P.GSHP ---
History of Present Illness H&P Date: 11/24/24 Chief Complaint: Elevated PSA level The patient is a 59-year-old white male with a family history of prostate cancer (father). Patient's PSA level recently increased to 5.6 to. Prostate MRI revealed a prostate volume of 80.4 cc. No suspicious lesions were seen, suggesting that the PSA increase is due to BPH. The patient initially opted for continued PSA monitoring, but subsequently chose to undergo prostate biopsies. - Cardiovascular Cardiovascular: Reports high blood pressure - Genitourinary (Male) Genitourinary: Reports urinary frequency Past Medical History Past Medical History: Hyperlipidemia, Hypertension, Sleep Apnea/CPAP/BIPAP Additional Past Medical History / Comment(s): Hx of pancreatitis, uses CPAP History of Any Multi-Drug Resistant Organisms: None Reported Past Surgical History: Bowel Resection, Cholecystectomy Additional Past Surgical History / Comment(s): colonoscopy Past Anesthesia/Blood Transfusion Reactions: No Reported Reaction Additional Past Anesthesia/Blood Transfusion Reaction / Comment(s): no hx. of transfusion Smoking Status: Never smoker Medications and Allergies Home Medications Medication Instructions Recorded Confirmed Type Ascorbic Acid [Vitamin C] 1,000 mg PO DAILY 03/05/20 11/24/24 History Atorvastatin Calcium [Lipitor] 40 mg PO HS 03/05/20 11/24/24 History Cholecalciferol [Vitamin D3 (25 2,000 unit PO DAILY 03/05/20 11/24/24 History Mcg = 1000 Iu)] Fenofibric Acid (Choline) 135 mg PO DAILY 03/05/20 11/24/24 History [Fenofibric Acid] Cyanocobalamin (Vitamin B-12) 1,000 mcg PO DAILY 09/17/23 11/24/24 History [Vitamin B-12] Losartan Potassium [Cozaar] 100 mg PO DAILY 09/17/23 11/24/24 History traZODone HCL [Desyrel] 50 mg PO HS PRN 09/17/23 11/24/24 History Allergies Allergy/AdvReac Type Severity Reaction Status Date / Time No Known Allergies Allergy Verified 11/24/24 13:47 Surgical - Exam - General well developed, well nourished, no distress - Respiratory normal respiratory effort - Abdomen Abdomen: soft, non tender, no guarding, no rigid, no rebound - Genitourinary normal penis with no external lesions, testicles non-tender - Rectum Rectum: normal sphincter tone, no masses, other (Prostate moderately enlarged but smooth) - Psychiatric oriented to time, oriented to person, oriented to place, speech is normal, memory intact Assessment and Plan (1) Elevated prostate specific antigen [PSA] Status: Acute Code(s): R97.20 - ELEVATED PROSTATE SPECIFIC ANTIGEN [PSA] SNOMED Code(s): 697957906 Plan: The patient will undergo transrectal ultrasound of the prostate with biopsies. The procedure has been reviewed in detail with the patient. He has been made aware of potential risks, which include anesthesia, bleeding, and infection. He is also aware that negative biopsies do not completely rule out prostate cancer.
[2024-11-27 12:25] VITALS: TEMP 97.2
[2024-11-27] MEDS: IV FLUID CONTINUATION 1,000 ML IV ONE (12:30)
[2024-11-27] MEDS: LACTATED RINGERS 1,000 ML IV SCH (12:37)
[2024-11-27] MEDS: GENTAMICIN 40 MG/ML 2 ML VIAL IM PRN (12:38)
[2024-11-27] MEDS ORDERED: ePHEDrine 50 MG/ML 1 ML VIAL ONE (13:36)
[2024-11-27] MEDS ORDERED: fentaNYL (PF) 50 MCG/ML 2 ML AMP ONE (13:36)
[2024-11-27] MEDS ORDERED: MIDAZOLAM 2 MG/2 ML VIAL ONE (13:36)
[2024-11-27] MEDS ORDERED: PROPOFOL 10 MG/ML 20 ML VIAL IV ONE (13:36)
--- NOTE | 2024-11-27 14:00 | P.OP ---
Date of Procedure: 11/27/24 Preoperative Diagnosis: Elevated PSA level Postoperative Diagnosis: Same Procedure(s) Performed: Transrectal ultrasound of the prostate with ultrasound-guided biopsies Anesthesia: MAC Surgeon: Balaji Bustos Estimated Blood Loss (ml): 5 IV fluids (ml): 300 Pathology: other (Prostate biopsies) Condition: stable Disposition: PACU Indications for Procedure: The patient is a 59-year-old white male with a family history of prostate cancer (father). Patient's PSA level recently increased to 5.6 to. Prostate MRI revealed a prostate volume of 80.4 cc. No suspicious lesions were seen, suggesting that the PSA increase is due to BPH. The patient initially opted for continued PSA monitoring, but subsequently chose to undergo prostate biopsies. Operative Findings: BPH. No suspicious lesions seen. Description of Procedure: The patient was taken to the operating room and placed in the left lateral decubitus position. MICHAEL revealed the prostate to be mildly enlarged but smooth. The [employer] transrectal ultrasound probe was placed intrarectally. The prostate was imaged in both the axial and sagittal planes, revealing a prostate volume of 73.18 mL. The bladder appeared normal. The seminal vesicles appeared normal. The central zone and peripheral zone appeared normal. Transitional zone showed evidence of BPH. Using the Biopty gun, 12 biopsies were obtained utilizing a standard template. Once the procedure was completed, the ultrasound probe was removed. The patient tolerated the procedure well was taken to the recovery room stable condition.
[2024-11-27 14:28] VITALS: RESP 16
[2024-11-27 14:43] VITALS: BP 115/73; PULSE 62
== END 2024-11-27 15:15 | disposition home or self-care (01) ==
LOC: OR 10:56
PROVIDERS: ATTEND Urology
DX: D07.5 Carcinoma in situ of prostate (principal); R97.20 Elevated prostate specific antigen [PSA]; E78.5 Hyperlipidemia, unspecified; I10 Essential (primary) hypertension; G47.30 Sleep apnea, unspecified
CPT/HCPCS: 88344; 88305; 55700; J2250; J1580; J0690; J3010; J2704